=== PATIENT | female | born 1985 | race Two or more races ===

== ENCOUNTER 2019-12-10 10:56 | Emergency (ER) | payer BC ==
[~2019-12-10] VITALS: Ht 157.5 cm; Wt 53.1 kg
[~2019-12-10 10:56] MED LIST: AUBRA EQ-28 TA1 EACH PO
--- NOTE | 2019-12-10 11:23 | Emergency Room Report ---
History of Present Illness General Chief Complaint: Chest Pain Source: Patient Present Illness HPI History of present illness: 34-year-old female presents with chest pain radiates to the right shoulder. Of note, patient was hospitalized 2 to 3 days ago for removal of endometriosis and right ovarian cyst. She underwent general anesthesia for the surgery and had no complications. The patient's symptoms were gradual onset, severity was moderate, duration since 1 day. The patient endorses associated symptoms of right shoulder pain, and denies any associated symptoms of hemoptysis, leg swelling, cough, fever, chills, nausea, vomiting, diarrhea, shortness of breath Past medical history: Endometriosis, R ovarian cyst Past surgical history: Laparoscopic ovarian cyst removal Smoking: Denies Alcohol use: Denies Drug use: Denies Review of systems: CONST: No fevers or chills, No night sweats PULMONARY: No productive cough, No shortness of breath CARDIAC: Positive chest pain, No palpitations GI: No vomiting, No diarrhea , No melena_or_BRBPR : No dysuria, No hematuria, No discharge NEURO: No new_focal_weakness_or_numbness, No confusion, No vision changes 14 point Review of Systems is otherwise negative except per HPI Physical Exam: GENERAL: Awake_alert_ nontoxic, no acute distress Spo2 100% on [RA], [normal] EYES: Extraocular muscles are intact. Conjunctivae clear. Lids without swelling ENT: External nose and ear normal_in_appearance. Oropharynx clear. Head_ atraumatic, Moist_oral_mucosa NECK: No JVD. No meningismus. No thyromegaly. Supple. Trachea midline RESP: Normal respiratory effort. Symmetric rise. No stridor. Clear_to_ auscultation_No_rales_No_wheezes CARDIAC: Regular rate and regular rhythm on_auscultation No_significant pedal edema. Reproducible R chest wall pain. No crepitus. FROM RUE. R scapular hyperotnicity ABDOMEN: Soft. Nondistended. Nontender_No_rebound_or_guarding. MSK: Normal muscle tone, without rigidity. Extremities without asymmetric deformity or swelling. SKIN: Warm and dry. No visible cyanosis or pallor NEUROLOGIC: Alert, oriented x3. Motor_and_sensation_grossly_intact. No truncal ataxia. Gait_normal Psych: Normal mood and affect, normal judgment and insight - COORDINATION OF CARE Case was discussed with: Patient Any labs and imaging that were ordered were interpreted as part of the medical decision making: Medical Decision Making/Plan: Differential includes acute coronary syndrome, pulmonary embolism, pneumonia, aortic dissection, pericardial tamponade, musculoskeletal chest pain, among others. Patient is nontoxic and well-appearing with stable vitals signs. The patients pain appears consistent with a musculoskeletal origin. Pain is reproducible with palpation. EKG shows NSR without any obvious signs of ischemia. CXR shows no evidence of pneumothorax, pneumonia, or significant pleural effusion. Troponin negative x 1. CTA chest was negative for PE. Pt is not . Bedside US EFAST is negative for FF in the RUQ, LUQ and abdomen. Abdominal exam is non peritoneal and non rigid. Pt was able to tolerate PO prior to discharge. Acute coronary syndrome is unlikely and the patient is low risk, pain is atypical, nonexertional, and troponin is negative with over 6 hrs of symptoms ( since yesterday). The pain is not classic for pericarditis or myocarditis, and the patient has no significant risk factors for a pericardial effusion and has stable vitals signs , unlikely to have tamponade. The patient has no significant risk factors for aortic dissection, no history of connective tissue disorder, and the patients pain is not severe, radiating to the back, or tearing in nature. Patient has normal bilateral radial and pedal pulses. Given that the patients pain appears to clearly be musculoskeletal in nature, and has no significant coronary artery disease risk factors, the patients presentation is not consistent with acute coronary syndrome. Will DC home with naproxen and muscle relaxant. Allergies: Coded Allergies: No Known Allergies (Unverified , 12/06/19) COVID-19 Screening Contact w/high risk pt: No Experienced COVID-19 symptoms?: No COVID-19 Testing performed RN HEMODIALYSIS: No Patient History Now: No Nursing Documentation-PMH Hx Cardiac Problems: Yes Hx Cancer: No - removal of cyst Hx Gastrointestinal Problems: No - gallbladder removal, Hx Neurological Problems: No Physical Exam Vital Signs Date Time Temp Pulse Resp B/P (MAP) Pulse Ox O2 Delivery O2 Flow Rate FiO2 12/10/19 11:11 98.2 75 19 122/69 (86) 96 Room Air Medical Decision Making Diagnostic Impression: Primary Impression: Chest wall pain following surgery Additional Impressions: Muscle strain Endometriosis Ovarian cyst EKG Diagnostic Results GINNA Guardado 12-lead EKG (interpreted by me) Time: 1110 Indication: [Rhythm analysis] Tracing visualized and Interpreted by me. Rhythm: [Normal sinus rhythm] Rate: 70 bpm QTc: 427 Morphology: No_significant_ST_elevations_or_depressions, No STEMI Impression: [Normal_sinus_rhythm_without_significant_abnormality] Rhythm Strip Diag. Results Rhythm Strip Time: 11:43 EP Interpretation: yes Rate: 74 Rhythm: NSR, no PVC's, no ectopy Chest X-Ray Diagnostic Results Chest X-Ray Diagnostic Results : GINNA Guardado Chest X-ray: Views: 1 view(s) Indication: Chest pain Findings: Normal heart size. Mediastinum normal. No infiltrate. Impression: No acute disease The X-ray(s) were independently viewed and interpreted contemporaneously - Electronically signed by Jessica guzman DO Diagnostic POCUS Bedside Ultrasound Diagnostics: Bedside US Exam performed: FAST Exam Indication: Chest Pain Number of Views: Limited Interpreted by Emergency Physi: Yes FAST Exam Findings: No fluid morison's pouch, No fluid splenorenal rec., No Fluid Pelv. Cul-de-sac, No pericardial effusion, No acute findings Impression: No acute findings Last Vital Signs Date Time Temp Pulse Resp B/P (MAP) Pulse Ox O2 Delivery O2 Flow Rate FiO2 12/10/19 11:11 98.2 75 19 122/69 (86) 96 Room Air Disposition: HOME, SELF-CARE Admit Decision Time: 13:14 Condition: Stable Scripts Methocarbamol* (ROBAXIN-750*) 750 Mg Tablet 750 MG PO TID, #21 TAB 0 Refills Prov: Jessica Ruiz D.O. 12/10/19 Naproxen Sodium (Naproxen Sodium ER) 500 Mg Tbmp.24hr 500 MG PO BID for pain for 14 Days, #28 TAB Prov: Jessica Ruiz D.O. 12/10/19 Patient Instructions: Nonspecific Chest Pain Additional Instructions: Instructions for patient/cleaning machine operator: Follow up with your physician in 1-2 days. Follow-up with your doctor sooner if your condition requires a more timely clinical reevaluation. Return to the emergency department immediately if you feel that your condition is worsening or if you have any new or concerning symptoms. Review your discharge instructions and take any prescriptions given as instructed. Jessica Ruiz D.O. Dec 10, 2019 11:22
[2019-12-10 11:32] LABS: EOSINOPHILS % (AUTO) 0.6 % (0.0-3.0); HEMATOCRIT 39.4 % (37.0-47.0); HEMOGLOBIN 12.6 G/DL (12.0-16.0); LYMPHOCYTES % (AUTO) 32.4 % (20.0-45.0); MEAN CORPUSCULAR VOLUME 90 FL (80-99); MONOCYTES % (AUTO) 5.2 % (1.0-10.0); NEUTROPHILS % (AUTO) 60.9 % (45.0-75.0); PLATELET COUNT 174 K/UL (150-450); RED BLOOD COUNT 4.37 M/UL (4.20-5.40); RED CELL DISTRIBUTION WIDTH 12.3 % (11.6-14.8); WHITE BLOOD COUNT 5.6 K/UL (4.8-10.8)
[2019-12-10 11:34] VITALS: BP 114/71
[2019-12-10] MEDS ORDERED: Omnipaque 350 100ml vial INJ PRN (11:45)
--- NOTE | 2019-12-10 12:01 | Diagnostic Imaging Report ---
EXAM: XR Chest, 1 View CLINICAL HISTORY: CP TECHNIQUE: Frontal view of the chest. COMPARISON: None FINDINGS: Hardware: None. Lungs/pleura: Normal. No focal consolidation. No pleural effusion or pneumothorax. Heart/mediastinum: Normal. No cardiomegaly. Soft tissues: Unremarkable. Bones: No acute fracture. Upper abdomen: Normal. IMPRESSION: No acute disease identified.
[2019-12-10 12:18] LABS: ANION GAP 4 mmol/L (5-15); BLOOD UREA NITROGEN 8 mg/dL (7-18); CALCIUM 8.9 MG/DL (8.5-10.1); CARBON DIOXIDE 31 MMOL/L (21-32); CHLORIDE 106 MMOL/L (98-107); CREATININE 0.9 MG/DL (0.55-1.30); POTASSIUM 4.3 MMOL/L (3.5-5.1); SODIUM 141 MMOL/L (136-145)
[2019-12-10 12:22] LABS: ALANINE AMINOTRANSFERASE 85 U/L (12-78); ALBUMIN 3.6 G/DL (3.4-5.0); ALBUMIN/GLOBULIN RATIO 1.1 (1.0-2.7); ALKALINE PHOSPHATASE 40 U/L (46-116); ASPARTATE AMINO TRANSFERASE 29 U/L (15-37); BILIRUBIN,TOTAL 0.7 MG/DL (0.2-1.0)
[2019-12-10] MEDS ORDERED: ROBAXIN-750750 MG PO (13:14)
[2019-12-10] MEDS ORDERED: NAPROXEN SODIU500 MG PO (13:14)
[2019-12-10] MEDS ORDERED: Naproxen 500mg tab ORAL ONE (13:15)
[2019-12-10] MEDS ORDERED: Methocarbamol 750mg tab ORAL ONE (13:15)
--- NOTE | 2019-12-10 13:28 | Diagnostic Imaging Report ---
EXAM: CT Angiography Chest With Intravenous Contrast CLINICAL HISTORY: CP TECHNIQUE: Axial computed tomographic angiography images of the chest with intravenous contrast. CTDI is 39.3 mGy and DLP is 127.4 mGy-cm. One or more of the following dose reduction techniques were used: automated exposure control, adjustment of the mA and/or kV according to patient size, use of iterative reconstruction technique. MIP reconstructed images were created and reviewed. COMPARISON: Radiograph on 12/10/2019 FINDINGS: Pulmonary arteries: No pulmonary embolus identified. Aorta: No aortic aneurysm or dissection. Lungs: Mild dependent atelectasis bilaterally. Small air cyst in the posterior right lower lobe. No mass. Pleural space: Trace bilateral pleural effusions. No pneumothorax. Heart: Unremarkable. No cardiomegaly. No significant pericardial effusion. No evidence of RV dysfunction. Bones/joints: No acute fracture. No dislocation. Soft tissues: Bilateral breast implants. Lymph nodes: Unremarkable. No enlarged lymph nodes. Gallbladder and bile ducts: Cholecystectomy clips partially visualized. Spleen: Small splenule. Kidneys and ureters: Small left renal cyst. IMPRESSION: 1. No pulmonary embolus identified. 2. No aortic aneurysm or dissection. 3. Trace bilateral pleural effusions. 4. No focal consolidation.
[2019-12-10] MEDS ORDERED: Naproxen 500mg tab ONE (13:38)
[2019-12-10 14:03] VITALS: BP 129/82
[2019-12-10 14:04] VITALS: BP 129/82
== END 2019-12-10 14:04 | disposition home or self-care (01) ==
LOC: EMR 11:42
DX: R07.89 Other chest pain (principal); N80.9 Endometriosis, unspecified; J90 Pleural effusion, not elsewhere classified; Z90.49 Acquired absence of other specified parts of digestive tract; J98.4 Other disorders of lung; M25.511 Pain in right shoulder; T14.8XXA Other injury of unspecified body region, initial encounter; X58.XXXA Exposure to other specified factors, initial encounter; Y92.9 Unspecified place or not applicable
CPT/HCPCS: 36415; 71045; 71275; 80053; 81025; 84484; 84703; 85025; 93005; 99284; Q9967